=== PATIENT | male | born 1980 | race Two or more races ===

== ENCOUNTER → 2022-07-21 | Outpatient (CLI) | payer OTHER, SELFPAY ==
--- NOTE | 2022-07-18 08:40 | CYST_PTH ---
PATIENT: VAMSHI REED LOC: [facility] #:[id number] AGE/SX: 42/M ROOM: RE07/21/[address]: Dr. Abdiaziz Egan MD : 1980 BED: DIS: 07/21/2022 SPEC #: [id number] RECD: 07/21/22 15:09 STATUS: ELLIOT REPhil #: [id number] LATISHA: 07/18/22 08:[address]: Abdiaziz Egan DEPT: SURGICAL PATHOLOGY RECD BY: Mahsa Real ENTERED: 07/22/22 09:33 SP TYPE: Cyst OTHR DR: RADHA Tissues: Scrotum, NOS Procedures: Surgery Specimen Level III HEADER OPERATION: Excision of sebaceous cyst of scrotum PRE-OP DIAGNOSIS: Benign neoplasm of scrotum TISSUE SUBMITTED: Scrotal tissue MICROSCOPIC DIAGNOSIS Scrotal lesion, excision: Epidermal inclusion cyst. AM:forest 07/23/2022 COMMENT Case has been reviewed in consultation with Dr. Stanley who concurs with the above diagnosis. IDC:SJ MICROSCOPIC DESCRIPTION Slides are reviewed. GROSS DESCRIPTION Received in fixative is one container labeled with the patient's name and designated tissue from scrotum. The specimen consists of a june-white soft nodule measuring 3.5 x 2.5 x 2.5 cm. The specimen is inked and serially sectioned and consists of a cyst filled with june-white cheesy material. Entry Examiner sections are submitted in two cassettes. / JOSY:forest 07/22/2022 TC:5 CPT: 66269
== END | disposition home or self-care (01) ==
LOC: LABSPEC 16:14
PROVIDERS: Referring Provider Urology; Visit Provider Urology
DX: L72.0 Epidermal cyst (principal)
CPT/HCPCS: 88304